=== PATIENT | male | born 1965 | race Two or more races ===

== ENCOUNTER 2023-05-20 05:54 | Day surgery (SDC) | payer OTHER ==
[~2023-05-20] VITALS: Ht 170.2 cm; Wt 136.1 kg
[~2023-05-20 05:54] MED LIST: MOTRIN IB200 M1 PO; SYNTHROID300 MCG PO
[2023-05-20] MEDS ORDERED: PERCOCET 5-3251 EACH PO (12:49)
[2023-05-20] MEDS ORDERED: NABUMETONE500 MG PO (12:49)
== END 2023-05-20 18:00 | disposition home or self-care (01) ==
LOC: CIR.AMB 05:54
PROVIDERS: ATTEND Orthopaedic Surgery
DX: M75.121 Complete rotator cuff tear or rupture of right shoulder, not specified as traumatic (principal); M66.821 Spontaneous rupture of other tendons, right upper arm; M24.111 Other articular cartilage disorders, right shoulder; M75.41 Impingement syndrome of right shoulder; M75.51 Bursitis of right shoulder; M13.811 Other specified arthritis, right shoulder

== ENCOUNTER 2023-08-02 13:53 | Emergency (ER) | payer OTHER ==
[~2023-08-02] VITALS: Ht 170.2 cm; Wt 141.5 kg
[~2023-08-02 13:53] MED LIST changes: +NABUMETONE500 MG PO; +PERCOCET 5-3251 EACH PO
[2023-08-02 15:27] LABS: HEMATOCRIT 40.2 % (39.0-48.0); HEMOGLOBIN 13.3 g/dL (13-16.00); MEAN CELL VOLUME 92.4 fL (80.0-100.00); MEAN CORPUSCULAR HEMOGLOBIN 30.6 pg (27.00-32.0); MEAN CORPUSCULAR HGB CONC 33.1 g/dl (32.0-36.0); PLATELET COUNT 163 K/uL (150-450); RED BLOOD COUNT 4.35 M/uL (4.00-6.00)
[2023-08-02 16:09] LABS: GFR 8.18; POTASSIUM 3.99 mEq/L (3.5-5.1)
== END 2023-08-02 20:19 | disposition home or self-care (01) ==
LOC: ER 13:53
PROVIDERS: General Practice
DX: S43.014A Anterior dislocation of right humerus, initial encounter (principal); W01.0XXA Fall on same level from slipping, tripping and stumbling without subsequent striking against object, initial encounter; Y93.89 Activity, other specified; Y92.89 Other specified places as the place of occurrence of the external cause; Z88.2 Allergy status to sulfonamides; E03.9 Hypothyroidism, unspecified; M17.11 Unilateral primary osteoarthritis, right knee; N18.6 End stage renal disease
CPT/HCPCS: 23650; 71045; 73030; 73560; 73564; 96365; 96366; 99284; J2250; J3490; J7030

== ENCOUNTER 2023-08-20 11:49 | Outpatient (CLI) | payer OTHER | END 2023-08-20 12:03 | disposition home or self-care (01) | LOC: MRI 11:49 | PROVIDERS: ATTEND Orthopaedic Surgery | DX: S83.200A Bucket-handle tear of unspecified meniscus, current injury, right knee, initial encounter (principal); S83.201A Bucket-handle tear of unspecified meniscus, current injury, left knee, initial encounter; M25.511 Pain in right shoulder | CPT/HCPCS: 73721 ==